=== PATIENT | female | born 1960 | race Caucasian/White ===

== ENCOUNTER 2020-07-05 10:31 | Emergency (ER) | payer MEDICARE, OTHER ==
[~2020-07-05 10:31] MED LIST: BIOTIN800 MCG PO; CLARITIN10 MG PO; COZAAR 25MG TAB25 MG PO; FLONASE ALLER15.8 ML; GERITOL COMPLE1 EACH PO; LORTAB 10-3251 EACH PO; LOVAZA1 GM PO; MOBIC7.5 MG PO; NAPROSYN250 MG PO; NEURONTIN300 MG PO; PRILOSEC20 MG PO; ZOLOFT100 MG PO
[2020-07-05 11:58] LABS: EOSINOPHIL 0.7 % (0-5); HCT 42.1 % (37.0-47.0); LYMPHOCYTE 28.7 % (15-48); MCH 31.4 pg (25.0-31.0); MCHC 33.3 g/dL (32.0-36.0); MCV 94.4 fL (78.0-100.0); MPV 9.5 fL (6.0-9.5); NEUTROPHIL 66.9 % (41-80); NRBC 0.7; PLT 203 K/uL (150-400); RBC 4.46 M/uL (4.20-5.40); WBC 2.9 K/uL (4.0-10.5)
[2020-07-05 12:04] LABS: INR 0.98 (0.9-1.2); PROTHROMBIN TIME 12.3 SECONDS (11.4-13.6); PTT 24.9 SECONDS (22.2-34.7)
[2020-07-05 12:14] LABS: ALBUMIN 3.5 g/dL (3.4-5.0); BILIRUBIN - TOTAL 0.8 mg/dL (0.2-1.0); BUN/CREAT RATIO (CALC) 21.9 RATIO; CREATININE 0.64 mg/dL (0.51-0.95); GLOBULIN (CALCULATION) 3.2 g/dL; POTASSIUM 3.5 mmol/L (3.5-5.1); TOTAL PROTEIN 6.7 g/dL (6.4-8.2)
[2020-07-05 12:20] LABS: CKMB 0.9 ng/mL (0.0-3.6)
== END 2020-07-05 13:11 | disposition home or self-care (01) ==
LOC: FER 10:31
PROVIDERS: Emergency Medicine
DX: R07.9 Chest pain, unspecified (principal); I10 Essential (primary) hypertension; Z87.891 Personal history of nicotine dependence; Z88.5 Allergy status to narcotic agent
CPT/HCPCS: 36415; 71046; 80053; 82553; 84484; 85025; 85610; 85730; 93005

== ENCOUNTER → 2021-11-15 | Day surgery (SDC) | payer MEDICARE ==
[~2021-11-15] VITALS: Ht 157.5 cm; Wt 72.6 kg
[2021-11-15 09:05] LABS: HCT 39.7 % (37.0-47.0); HGB 13.7 g/dl (12.5-16.0); MCH 30.6 pg (25.0-31.0); MCHC 34.5 g/dL (32.0-36.0); MCV 88.8 fL (78.0-100.0); RBC 4.47 M/uL (4.20-5.40); RDW 12.8 % (11.5-14.0)
[2021-11-15 09:21] LABS: ALBUMIN 3.5 g/dL (3.4-5.0); BILIRUBIN - TOTAL 0.8 mg/dL (0.2-1.0); BUN/CREAT RATIO (CALC) 14.5 RATIO; CREATININE 0.62 mg/dL (0.51-0.95); GLOBULIN (CALCULATION) 3.4 g/dL; POTASSIUM 3.7 mmol/L (3.5-5.1); TOTAL PROTEIN 6.9 g/dL (6.4-8.2)
== END | disposition home or self-care (01) ==
LOC: FAS 08:29
PROVIDERS: Surgery
DX: K92.1 Melena (principal); K29.50 Unspecified chronic gastritis without bleeding; B96.81 Helicobacter pylori [H. pylori] as the cause of diseases classified elsewhere; K31.9 Disease of stomach and duodenum, unspecified; R19.7 Diarrhea, unspecified; Z79.1 Long term (current) use of non-steroidal anti-inflammatories (NSAID); Z79.899 Other long term (current) drug therapy; Z88.5 Allergy status to narcotic agent; Z80.0 Family history of malignant neoplasm of digestive organs
CPT/HCPCS: 36415; 80053; J1610; J2250; J2704; J7120